=== PATIENT | female | born 1965 | race Caucasian/White ===

== ENCOUNTER 2016-03-31 05:35 | Day surgery (SDC) | payer OTHER ==
[~2016-03-31] VITALS: Ht 144.8 cm; Wt 73.5 kg
[~2016-03-31 05:35] MED LIST: ATIVAN1 MG PO; BISOPROLOL-HCT1 EACH PO; BISOPROLOL/HCTZ PO; CELEBREX200 MG PO; HYDROCODON-ACE1 EAC7 PO; IRON325 MG PO; LISINOPRIL20 MG PO; LISINOPRIL40 MG PO; MEGACE20 MG PO; PAROXETINE HCL40 MG PO; PAXIL40 MG PO; SIMVASTATIN40 MG PO; TOPROL XL100 MG PO
[2016-03-31 06:40] VITALS: BP 175/81
[2016-03-31 11:36] VITALS: BP 152/75
[2016-03-31 16:00] VITALS: BP 116/55
[2016-03-31 19:00] VITALS: BP 128/60
[2016-03-31 22:55] VITALS: BP 158/71
[2016-04-01 04:30] VITALS: BP 157/93
[2016-04-01 07:01] LABS: HEMATOCRIT 32.9 % (36.0-46.0); MCH 24.7 PG (29.0-34.0); MCV 79.7 FL (83-99); MEAN PLAT.VOLUME 9.1 uM^3 (9.5-12.4); PLATELET COUNT 305 K/uL (156-360); RBC DIS.WIDTH-CV 19.7 % (11.8-14.6); RBC DIS.WIDTH-SD 57.4 % (39-53); RED BLOOD COUNT 4.13 M/uL (3.80-5.20)
[2016-04-01 07:20] LABS: EOSINOPHIL (%) 0 % (0-5); IMMATURE GRANULOCYTE (%) 0.1 % (0.0-0.7); LYMPHOCYTE COUNT 0.9 K/uL (1.0-2.8); MONOCYTE (%) 8.5 % (3-12); MONOCYTE COUNT 0.6 K/uL (0-0.8); NEUTROPHIL (%) 78.9 % (45-76); NEUTROPHIL COUNT 5.7 K/uL (1.8-6.4)
[2016-04-01 07:23] LABS: WHITE BLOOD COUNT 7.2 K/uL (4.1-10.2)
[2016-04-01 07:35] LABS: ANION GAP 9 MEQ/L (2-14); CHLORIDE 104 MEQ/L (99-109); GFR ESTIMATE (CALCULATED) > 59 mL/min/; GLUCOSE 116 mg/dL (70-99); POTASSIUM 4.4 MEQ/L (3.7-5.4); SAMPLE HEMOLYSIS CHECK 0; SAMPLE ICTERIC CHECK 0; SAMPLE LIPEMIA CHECK 0; SODIUM 138 MEQ/L (136-147); UREA NITROGEN (BUN) 9 mg/dL (9-23)
[2016-04-01 08:05] VITALS: BP 176/83
== END 2016-04-01 11:02 | disposition home or self-care (01) ==
LOC: SDC 05:35 → 2SOUTH 10:17 → 2EAST 10:17 → 2SOUTH 10:17 → 2EAST 11:29 → SDC 11:30 → 2EAST 04-01 11:02
PROVIDERS: Obstetrics & Gynecology Gynecology
PROC: 0UT94ZZ Resection of Uterus, Percutaneous Endoscopic Approach (ICD-10-PCS; principal; 2016-03-31)
PROC: 0UT24ZZ Resection of Bilateral Ovaries, Percutaneous Endoscopic Approach (ICD-10-PCS; principal; 2016-03-31)
PROC: 0UT74ZZ Resection of Bilateral Fallopian Tubes, Percutaneous Endoscopic Approach (ICD-10-PCS; principal; 2016-03-31)
DX: N92.0 Excessive and frequent menstruation with regular cycle (principal); N80.0 Endometriosis of uterus; N72 Inflammatory disease of cervix uteri; D25.9 Leiomyoma of uterus, unspecified; N73.6 Female pelvic peritoneal adhesions (postinfective); F17.200 Nicotine dependence, unspecified, uncomplicated; D50.0 Iron deficiency anemia secondary to blood loss (chronic)
CPT/HCPCS: 80048; 85025; 87086; 88307; G0378; J0330; J0690; J1100; J1170; J1644; J1885; J2250; J2405; J2710; J3010; J7120